=== PATIENT | female | born 1995 | race Caucasian/White ===

== ENCOUNTER 2017-03-12 21:56 | Emergency (ER) | payer OTHER | END 2017-03-13 00:58 | disposition home or self-care (01) | LOC: ER1 21:56 | DX: S93.401A Sprain of unspecified ligament of right ankle, initial encounter (principal); X50.1XXA Overexertion from prolonged static or awkward postures, initial encounter; Y93.45 Activity, cheerleading; Y99.8 Other external cause status | CPT/HCPCS: 73610; 73630; 99283 ==

== ENCOUNTER → 2022-02-05 | Outpatient (CLI) | payer OTHER | LOC: GENOP 13:59 | DX: O47.03 False labor before 37 completed weeks of gestation, third trimester (principal); Z3A.32 32 weeks gestation of pregnancy | CPT/HCPCS: 59025; 81001; 82731 ==

== ENCOUNTER 2022-03-30 16:21 | Inpatient (IN) | payer OTHER ==
[~2022-03-30] VITALS: Ht 154.9 cm; Wt 65.8 kg
[2022-03-30 17:50] LABS: HEMOGLOBIN 12.3 gm/dl (12.3-15.3); RED BLOOD COUNT 3.94 M/UL (4.00-5.10)
[2022-03-31] MEDS ORDERED: IBUPROFEN600 MG PO (12:13)
[2022-03-31] MEDS ORDERED: COLACE 100MG C100 MG PO (12:13)
[2022-04-01 04:26] LABS: HEMOGLOBIN 10.3 gm/dl (12.3-15.3)
== END 2022-04-01 18:44 | disposition home or self-care (01) | DRG 807 ==
LOC: GENOP 16:21 → CDU 17:14 → OB 17:15
PROVIDERS: ADMIT Obstetrics & Gynecology
PROC: 10E0XZZ Delivery of Products of Conception, External Approach (ICD-10-PCS; principal; 2022-03-30)
PROC: 10907ZC Drainage of Amniotic Fluid, Therapeutic from Products of Conception, Via Natural or Artificial Opening (ICD-10-PCS; 2022-03-30)
PROC: 4A1H7CZ Monitoring of Products of Conception, Cardiac Rate, Via Natural or Artificial Opening (ICD-10-PCS; 2022-03-30)
PROC: 10H073Z Insertion of Monitoring Electrode into Products of Conception, Via Natural or Artificial Opening (ICD-10-PCS; 2022-03-30)
PROC: 3E033VJ Introduction of Other Hormone into Peripheral Vein, Percutaneous Approach (ICD-10-PCS; 2022-03-30)
PROC: 0W8NXZZ Division of Female Perineum, External Approach (ICD-10-PCS; 2022-03-30)
DX: O99.344 Other mental disorders complicating childbirth (principal); Z37.0 Single live birth; F32.A Depression, unspecified; F41.9 Anxiety disorder, unspecified; O99.892 Other specified diseases and conditions complicating childbirth; G43.909 Migraine, unspecified, not intractable, without status migrainosus; Z3A.39 39 weeks gestation of pregnancy; Z90.89 Acquired absence of other organs; Z81.8 Family history of other mental and behavioral disorders; Z82.49 Family history of ischemic heart disease and other diseases of the circulatory system; Z28.310 Unvaccinated for COVID-19
CPT/HCPCS: 81001; 85014; 85018; 85025; C9113; J0595; J0690; J2590; J2765; J3105

== ENCOUNTER 2022-04-19 15:42 | Emergency (ER) | payer OTHER ==
[~2022-04-19 15:42] MED LIST: COLACE 100MG C100 MG PO; IBUPROFEN600 MG PO
[2022-04-19 17:25] LABS: HEMOGLOBIN 15.1 gm/dl (12.3-15.3); RED BLOOD COUNT 4.87 M/UL (4.00-5.10); WHITE BLOOD COUNT 6.5 K/UL (4.5-11.0)
[2022-04-19 17:57] LABS: BUN/CREATININE RATIO 14 (0-10)
== END 2022-04-19 19:00 | disposition left against medical advice (07) ==
LOC: ER1 15:42
PROVIDERS: Student in an Organized Health Care Education/Training Program
DX: R10.31 Right lower quadrant pain (principal); F17.210 Nicotine dependence, cigarettes, uncomplicated
CPT/HCPCS: 80053; 81001; 83690; 84703; 85025; 99281